=== PATIENT | male | born 1945 | race Caucasian/White ===

== ENCOUNTER → 2018-01-31 | Day surgery (SDC) | payer MEDICARE, OTHER ==
--- NOTE | 2018-01-30 11:46 | Pre Op History & Physical ---
DATE OF SURGERY: January 31, 2018 CHIEF COMPLAINT: Lesion in the soft palate and left ala of the nose. HISTORY OF PRESENT ILLNESS: This 72-year-old male was noted to have a lesion in the soft palate about 3 months. The lesion has been increasing in size. The patient also has a lesion in the right nasal ala, with a history of sun damage. The patient dip about half a can a day, is a nondrinker. FAMILY HISTORY: Noncontributory. SYSTEMS REVIEW: Showed no recent cardiovascular, respiratory, or GI problem. PAST MEDICAL HISTORY: Patient has no history of diabetes. No blood sugars problem or history of cardiac problem. He also had previous cancer of the prostate. PAST SURGICAL HISTORY: He has previous coronary artery bypass and surgery for his prostate cancer. ALLERGIES: ALLERGIC TO SULFA. MEDICATIONS: He is on simvastatin, metoprolol, Bromfed. SOCIAL HISTORY: He dip about half a can a day. He is a nondrinker. FAMILY HISTORY: Noncontributory. PHYSICAL EXAMINATION VITAL SIGNS: Within normal limits. EAR: Exam showed normal tympanic membranes bilaterally. NOSE: Nasal exam showed hypertrophy of the inferior turbinate. THROAT: Oropharynx and oral cavity showed a lesion in the soft palate about 0.5 cm in the paramedian right side. MUSCULOSKELETAL: Exam showed the patient has a lesion in the nasal tip, about 0.5 cm. NECK: No lymph node or thyroid palpable. CHEST: Good air entry bilaterally. CARDIOVASCULAR: S1 and S2. No murmur noted. BEDSPREAD SEAMER: Cranial nerves II through XII were within normal limits. Mr. Rose has lesion in the soft palate lesion and lesion in the nasal tip which has been resistant to conservative therapy. The suggested treatment is panendoscopy, excisional biopsy of the lesion in the soft palate and excisional biopsy of lesion in the nasal tip with appropriate closure and other necessary procedure. The complications of procedure includes but not limited to bleeding, infection, perforation of esophagus, pneumomediastinum, mediastinitis, airway compromise, persistent recurrence of the problem along with poor cosmetic result, nasal obstruction of the nasal lesion, and persistent recurrence of the problem. Alternative will continued observation, biopsy of lesion in the office setting. The patient has elected to undergo the surgical procedure. Job#: [id number] [facility] cc:DR KATHY ALAN
[~2018-01-31] MED LIST: ACETAMINOPHEN 1000 MG/100 ML IV ONE; ASPIR 8181 MG PO; DEXAMETHASONE SOD PHOS INJ 4 MG/ML VIAL ONE; FENTANYL CITRATE/PF 100MCG/2 ML INJ ONE; LIDOCAINE 1% W/EPINEPHRINE 20 ML VIAL ONE; MIDAZOLAM HCL 2 MG/2 ML VIAL ONE; MOBIC15 MG PO; ONDANSETRON HCL INJ 2 MG/ML VIAL ONE; PROPOFOL IV EMULSION 10 MG/ML 20 ML VIAL ONE; ROCURONIUM BROMIDE 10 MG/ML 5ML VIAL ONE; SEVOFLURANE INHAL SOLN 250 ML PEN BTL ONE; SIMVASTATIN80 MG PO; SUCCINYLCHOLINE 200 MG/10 ML SYR ONE
[2018-01-31 11:18] LABS: BASOPHILS # (AUTO) 0.1 (0.0-0.1); BASOPHILS % 0.5 % (0.0-1.0); EOSINOPHILS # (AUTO) 0.3 (0.0-0.4); EOSINOPHILS % 3.1 % (0.0-6.0); HEMATOCRIT 48.6 % (38.2-49.6); HEMOGLOBIN 16.6 g/dL (14.0-18.0); LYMPHOCYTES # (AUTO) 3.5 (1.0-3.2); LYMPHOCYTES % 32.5 % (18.0-39.1); MEAN CORPUSCULAR HEMOGLOBIN 30.9 pg (28-32); MEAN CORPUSCULAR HGB CONC 34.2 g/dL (31-35); MEAN CORPUSCULAR VOLUME 90.5 fL (81-99); MONOCYTES % 9.6 % (4.4-11.3); NEUTROPHILS # (AUTO) 5.7 (2.1-6.9); NEUTROPHILS % 53.6 % (38.7-80.0); PLATELET COUNT 230 x10e3/uL (140-360); RED BLOOD COUNT 5.37 x10e6/uL (4.3-5.7); RED CELL DISTRIBUTION WIDTH 13.9 % (11.7-14.4)
--- NOTE | 2018-01-31 11:54 | Diagnostic Imaging Report ---
EXAMINATION: PA and lateral views of the chest. COMPARISON: None CLINICAL HISTORY: Preoperative evaluation for throat surgery DISCUSSION: Lines/tubes: None. Lungs: The lungs are well inflated and clear. No pneumonia or pulmonary edema. Pleura: No pleural effusion or pneumothorax. Heart and mediastinum: Cardiomegaly. Prominence of the central pulmonary vasculature. Bones and soft tissues: No acute bony abnormalities. IMPRESSION: Cardiomegaly without compensation Signed by: Dr. Atul Munguia M.D. on 01/31/2018 11:51 AM
--- NOTE | 2018-01-31 14:01 | Operative Report ---
DATE OF PROCEDURE: January 31, 2018 CHIEF COMPLAINT: Lesion in the soft palate paramedian on the right side, right auricular lesion in the superior portion of the auricle, and left nasal tip lesion. POSTOPERATIVE DIAGNOSES 1. Lesion in the soft palate paramedian on the right side. 2. Right auricular lesion in the superior portion of the auricle. 3. Left nasal tip lesion. OPERATIVE PROCEDURES 1. Excision of right auricular lesion, 2 x 1 cm. 2. Excision of left nasal tip lesion, 2 x 1 cm. 3. Excision of paramedian right soft palate lesion, 0.5 x 1 cm. 4. Panendoscopy, rigid esophagoscopy and rigid bronchoscopy. ANESTHESIA: Anesthesiology Group. INDICATIONS: This 72-year-old male was noted to have a lesion in the soft palate for a few months. Lesion has been irritating to him. The patient also has a lesion in the right superior portion of the auricle along the rim of the auricle in the helical region around 11 o'clock. He also has another lesion in the nasal tip on the left side, which is scaly and irritating. It was decided that excision of these lesions along with panendoscopy and biopsy and other necessary procedure would be beneficial for him. DESCRIPTION OF PROCEDURE: The patient was taken to the operating room and put under general anesthesia and endotracheally intubated. The facial lesions were approached first. The right auricular lesion was excised in a radial fashion. The size of the defect was about 2 x 1 cm. After the lesion was excised, after injection of the area with 1% Xylocaine with 1:100,000 epinephrine, it was sent for permanent section. The closure of the lesion was undertaken. The superior and inferior flap was elevated in the subperichondrial flap. These were advanced in the midline and closed on itself using interrupted 4-0 Prolene suture. The nasal lesion was addressed. After the area was injected with 1% Xylocaine with 1:100,000 epinephrine for hemostasis, the area was removed along with the subunit of the nose, and the size of the defect was about 1 x 2 cm. Superior and inferior flap was elevated. The flap was raised in the submucosal plane. The flap was advanced and closed on itself using 5-0 Prolene suture in an interrupted fashion. The panendoscopy was performed. The patient was repositioned. The rigid esophagoscopy was performed. Esophagoscope was passed through the cricopharyngeus muscle. Esophagus was examined to about 25 cm from the incisor. No abnormality was noted. Esophagoscope was retrieved. The rigid bronchoscopy was performed. A size-4 bronchoscope with Wise liang was used. Bronchoscope was passed parallel to the endotracheal tube. Endotracheal tube cuff was deflated. Trachea was examined down to the selvin. No abnormality was noted. Bronchoscope was retrieved. Endotracheal tube cuff was reinflated. The direct laryngoscopy was performed. The Tamica laryngoscope was used. The oropharynx and oral cavity were examined. A lesion was noted in the soft palate in the paramedian region on the right side, about 0.5 cm. No other abnormality was noted. The piriform sinus on either side was examined. No abnormality was noted. The larynx was examined. Both the true and false vocal folds were examined. No abnormality was noted. Excision of the soft palate lesion was undertaken. The McIvor mouth gag was inserted. The soft palate area was injected with 1% Xylocaine with 1:100,000 epinephrine for hemostasis. The lesion was excised and sent for permanent section. The size of defect was about 0.5 x 1 cm. The medial and lateral submucosal flap was elevated. This was advanced in the midline and closed using buried 3-0 Vicryl suture in an interrupted fashion. The patient tolerated the above procedure well with minimal blood loss. He was given 20 mg of Decadron intraoperatively. Patient was able to be transferred to the recovery room in stable condition. Job#: [id number]
[2018-01-31 14:38] VITALS: BP 134/78
== END | disposition home or self-care (01) ==
LOC: OR 10:05
PROVIDERS: ATTEND Otolaryngology Otolaryngology/Facial Plastic Surgery
DX: K13.79 Other lesions of oral mucosa (principal); L82.1 Other seborrheic keratosis; L98.8 Other specified disorders of the skin and subcutaneous tissue; I25.810 Atherosclerosis of coronary artery bypass graft(s) without angina pectoris; I10 Essential (primary) hypertension; F17.220 Nicotine dependence, chewing tobacco, uncomplicated; Z88.2 Allergy status to sulfonamides; Z79.82 Long term (current) use of aspirin; Z85.46 Personal history of malignant neoplasm of prostate; Z95.1 Presence of aortocoronary bypass graft
CPT/HCPCS: 14060 ×2; 31540; 31622; 36415; 43191; 71046; 85025; 88305; 93005; J1100; J2250; J2405; 88304